=== PATIENT | male | born 1945 | race Caucasian/White ===

== ENCOUNTER 2018-11-11 10:19 | Inpatient (IN) | payer OTHER ==
[~2018-11-11] VITALS: Ht 188 cm; Wt 110.7 kg
[2018-11-11 10:23] VITALS: BP_SYST 118
[2018-11-11 11:20] LABS: BASOPHILS # (AUTO) 0.1 K/uL (0.0-0.2); BASOPHILS % (AUTO) 0.6 % (0.0-2.0); EOSINOPHILS # (AUTO) 0.1 K/uL (0.0-0.4); EOSINOPHILS % (AUTO) 0.4 % (0.0-4.0); HEMATOCRIT 41.7 % (36-54); HEMOGLOBIN 14.1 g/dL (14.0-18.0); LYMPHOCYTES # (AUTO) 1.5 K/uL (1.0-5.5); LYMPHOCYTES % (AUTO) 9.8 % (20.5-51.5); MEAN CORPUSCULAR HEMOGLOBIN 32 pg (27-31); MEAN CORPUSCULAR HGB CONC 34 % (32-36); MEAN CORPUSCULAR VOLUME 95 fL (79.0-98.0); MONOCYTES % (AUTO) 19.3 % (1.7-9.3); NEUTROPHILS # (AUTO) 10.7 K/uL (1.8-7.7); PLATELET COUNT (AUTO) 290 K/uL (130-430); RED BLOOD CELL COUNT(AUTO) 4.41 MIL/uL (4.2-6.2); RED CELL DISTRIBUTION WIDTH 13.3 % (9.0-15.0); WHITE BLOOD COUNT (AUTO) 15.4 K/uL (4.8-10.8)
[2018-11-11 11:38] LABS: ANION GAP 13 (5-15); CALCIUM 8.5 mg/dL (8.4-11.0); CHLORIDE 98 mmol/L (98-107); CREATININE 1.06 mg/dL (0.55-1.30); GLUCOSE 117 mg/dL (70-99); POTASSIUM 3.4 mmol/L (3.5-5.1); SODIUM SERUM 133 mmol/L (136-145); UREA NITROGEN, BLOOD 16 mg/dL (8-21)
[2018-11-11 11:44] LABS: INR 1.2 (0.80-1.20); PROTHROMBIN TIME 12.5 SECS (9.5-12.5)
[2018-11-11 11:45] LABS: ALANINE AMINOTRANSFERASE 21 U/L (12-78); ALBUMIN 2.2 g/dL (3.4-4.8); ASPARTATE AMINOTRANSFERASE 26 U/L (10-37); LIPASE 97 U/L (73-393); TOTAL BILIRUBIN 1.8 mg/dL (0.0-1.0)
[2018-11-11 11:52] LABS: NEUTROPHILS % (AUTO) 69.9 % (40.0-70.0)
[2018-11-11] MEDS ORDERED: CEFAZOLIN 2 GM IVPB PREMIX 50 ML IV ONE (13:00)
[2018-11-11] MEDS ORDERED: ASA400 PO (13:08)
[2018-11-11] MEDS ORDERED: IBUP-1969 PO (13:08)
[2018-11-11] MEDS ORDERED: FURO-149 PO (13:08)
[2018-11-11] MEDS ORDERED: VERA120C2 PO (13:08)
[2018-11-11] MEDS ORDERED: INSULIN REGULAR, HUMAN 100 UNITS/ML, 10 ML VIAL (novoLIN R) SUBCUT PRN (13:15)
[2018-11-11] MEDS ORDERED: IPRATROPIUM/ALBUTEROL SULFATE 3 ML AMPUL.NEB (DUONEB) INH PRN (13:15)
[2018-11-11] MEDS ORDERED: ONDANSETRON HCL 4 MG/2 ML VIAL IVP PRN (13:15)
[2018-11-11] MEDS ORDERED: ACETAMINOPHEN 325 MG TABLET PO PRN (13:15)
[2018-11-11] MEDS ORDERED: FUROSEMIDE 20 MG TABLET PO SCH (13:15)
[2018-11-11 13:29] VITALS: BP_SYST 144
[2018-11-11] MEDS: LEVOFLOXACIN 500 MG/D5W 100 ML IV SCH (14:43)
[2018-11-11] MEDS: NORMAL SALINE 5 ML DISP.SYRIN IVF SCH ×2 (14:43→21:17)
[2018-11-11 16:02] VITALS: BP_SYST 145; BP_SYST 148
[2018-11-11 16:50] LABS: BILIRUBIN,URINE 1+ (NEGATIVE); BLOOD, URINE 2+ (NEGATIVE); CLARITY/URINE SL HAZY (CLEAR); COLOR,URINE AMBER (YELLOW); GLUCOSE,URINE NEGATIVE (NEGATIVE); KETONES,URINE TRACE (NEGATIVE); LEUKOCYTE ESTERASE ,URINE NEGATIVE (NEGATIVE); NITRITE, URINE NEGATIVE (NEGATIVE); PH,URINE 6.5 (5.0-8.0); PROTEIN URINE NEGATIVE (NEGATIVE); UROBILINOGEN,URINE 0.2 (0.2-1.0)
[2018-11-11 17:49] LABS: BACTERIA,URINE FEW /HPF (None Seen); FINE GRANULAR CASTS,URINE 0-10 /LPF (None Seen); MUCUS,URINE None Seen /LPF (None Seen)
[2018-11-11] MEDS ORDERED: MORPHINE 2 MG/ML INJ. SYRINGE ONE (18:16)
[2018-11-11] MEDS ORDERED: RIVAROXABAN 15 MG TABLET PO SCH ×2 (18:30→19:00)
[2018-11-11 20:00] VITALS: BP_SYST 141
[2018-11-11] MEDS: CEFEPIME 1 GM in D5W 50 ML IV SCH (20:09)
[2018-11-11] MEDS: MESALAMINE 400 MG CAPSULE.DR PO SCH (20:10)
[2018-11-11] MEDS: VERAPAMIL HCL 120 MG TABLET.SA PO SCH (20:10)
[2018-11-11] MEDS ORDERED: RIVAROXABAN 10 MG TABLET PO SCH (21:00)
[2018-11-12] MEDS: MORPHINE 4 MG/ML INJ. SYRINGE IVP PRN ×4 (00:52→22:22)
[2018-11-12 02:40] VITALS: BP_SYST 131
[2018-11-12] MEDS: NORMAL SALINE 5 ML DISP.SYRIN IVF SCH ×3 (05:01→20:54)
[2018-11-12 08:24] VITALS: BP_SYST 140
[2018-11-12] MEDS ORDERED: MORPHINE 4 MG/ML INJ. SYRINGE IVP ONE (08:30)
[2018-11-12] MEDS: FUROSEMIDE 40 MG/4 ML VIAL IVP SCH (08:53)
[2018-11-12] MEDS: VERAPAMIL HCL 120 MG TABLET.SA PO SCH ×2 (08:56→20:39)
[2018-11-12] MEDS: MESALAMINE 400 MG CAPSULE.DR PO SCH ×3 (08:58→20:39)
[2018-11-12] MEDS: RIVAROXABAN 15 MG TABLET PO SCH ×2 (08:58→18:01)
[2018-11-12] MEDS: CEFEPIME 1 GM in D5W 50 ML IV SCH ×2 (08:59→20:14)
[2018-11-12] MEDS ORDERED: PANTOPRAZOLE SODIUM 40 MG/VIAL (PROTONIX) IVP SCH (09:00)
[2018-11-12] MEDS ORDERED: PANTOPRAZOLE SODIUM 40 MG/VIAL (PROTONIX) IVP ONE (09:00)
[2018-11-12] MEDS ORDERED: COMMUNICATION ORDER XX ONE (09:45)
[2018-11-12] MEDS ORDERED: NORFLURANE/HFC 245FA 103.5 ML SPRAY TP ONE ×2 (09:45→09:54)
[2018-11-12] MEDS: LEVOFLOXACIN 500 MG/D5W 100 ML IV SCH (10:59)
[2018-11-12 12:30] VITALS: BP_SYST 132
[2018-11-12 16:30] VITALS: BP_SYST 112
[2018-11-12] MEDS ORDERED: VANCOMYCIN HCL 1,500 MG in NS 250 ML IV ONE (19:00)
[2018-11-12 19:19] LABS: BODY FLUID SOURCE/ TYPE SYNOVIAL; SOURCE/TYPE ,BODY FLUID SYNOVIAL
[2018-11-12 19:21] LABS: BODY FLUID COLOR YELLOW (LT YELLOW); BODY FLUID TOTAL VOLUME 157.5 mL; RBC, BODY FLUID 3578 /uL; WBC, BODY FLUID 61844 /uL
[2018-11-12 20:00] VITALS: BP_SYST 124
[2018-11-12 20:10] LABS: APPEARANCE,SPUN,BODY FLUID CLEAR (CLEAR); EOSINOPHIL, BODY FLUID 0 %; LYMPHOCYTES, BODY FLUID 14 %; MONOCYTES,BODY FLUID 5 %; NEUTROPHIL, BODY FLUID 81 %
[2018-11-12] MEDS ORDERED: VANCOMYCIN HCL 1000 MG/VIAL IV ONE (20:10)
[2018-11-12] MEDS ORDERED: VANCOMYCIN HCL 500 MG/VIAL IV ONE (20:10)
[2018-11-12] MEDS ORDERED: COLCHICINE 0.6 MG TABLET PO SCH (22:00)
[2018-11-12 23:21] LABS: BODY FLUID GLUCOSE 3 mg/dL; BODY FLUID TOTAL PROTEIN 5.3 g/dL
[2018-11-13] VITALS (10 sets, daily range): BP systolic 107–119
[2018-11-13] MEDS: MORPHINE 4 MG/ML INJ. SYRINGE IVP PRN ×4 (02:56→21:31)
[2018-11-13] MEDS: NORMAL SALINE 5 ML DISP.SYRIN IVF SCH ×3 (05:12→21:39)
[2018-11-13 06:44] LABS: BASOPHILS % (AUTO) 0.1 % (0.0-2.0); EOSINOPHILS % (AUTO) 0.2 % (0.0-4.0); HEMATOCRIT 39.1 % (36-54); HEMOGLOBIN 13.4 g/dL (14.0-18.0); LYMPHOCYTES # (AUTO) 1.9 K/uL (1.0-5.5); LYMPHOCYTES % (AUTO) 10.4 % (20.5-51.5); MEAN CORPUSCULAR HEMOGLOBIN 32 pg (27-31); MEAN CORPUSCULAR HGB CONC 34 % (32-36); MEAN CORPUSCULAR VOLUME 93 fL (79.0-98.0); MONOCYTES # (AUTO) 3.2 K/uL (0.0-1.0); MONOCYTES % (AUTO) 17.8 % (1.7-9.3); NEUTROPHILS # (AUTO) 12.9 K/uL (1.8-7.7); PLATELET COUNT (AUTO) 323 K/uL (130-430); RED BLOOD CELL COUNT(AUTO) 4.23 MIL/uL (4.2-6.2); RED CELL DISTRIBUTION WIDTH 13.2 % (9.0-15.0)
[2018-11-13 06:54] LABS: ALANINE AMINOTRANSFERASE 15 U/L (12-78); ALBUMIN 1.7 g/dL (3.4-4.8); ANION GAP 12 (5-15); ASPARTATE AMINOTRANSFERASE 23 U/L (10-37); CHLORIDE 95 mmol/L (98-107); CREATININE 0.89 mg/dL (0.55-1.30); GLUCOSE 101 mg/dL (70-99); POTASSIUM 3.6 mmol/L (3.5-5.1); SODIUM SERUM 130 mmol/L (136-145); TOTAL BILIRUBIN 1.9 mg/dL (0.0-1.0); UREA NITROGEN, BLOOD 15 mg/dL (8-21)
[2018-11-13 09:44] LABS: NEUTROPHILS % (AUTO) 71.5 % (40.0-70.0)
[2018-11-13] MEDS: CEFEPIME 1 GM in D5W 50 ML IV SCH ×2 (09:56→21:31)
[2018-11-13] MEDS: VANCOMYCIN HCL 1,500 MG in NS 250 ML IV SCH ×2 (09:57→21:30)
[2018-11-13] MEDS: VERAPAMIL HCL 120 MG TABLET.SA PO SCH ×2 (09:58→21:29)
[2018-11-13] MEDS: COLCHICINE 0.6 MG TABLET PO SCH (09:58)
[2018-11-13] MEDS: LEVOFLOXACIN 500 MG/D5W 100 ML IV SCH (09:59)
[2018-11-13] MEDS: MESALAMINE 400 MG CAPSULE.DR PO SCH ×3 (09:59→21:28)
[2018-11-13] MEDS: FUROSEMIDE 40 MG/4 ML VIAL IVP SCH (10:00)
[2018-11-13] MEDS: PANTOPRAZOLE SODIUM 40 MG/VIAL (PROTONIX) IVP SCH (10:36)
[2018-11-13] MEDS ORDERED: PANTOPRAZOLE SODIUM 40 MG/VIAL (PROTONIX) IVP ONE (10:45)
[2018-11-13] MEDS ORDERED: fentaNYL CITRATE/PF 100 MCG/2 ML AMP IVP PRN (18:15)
[2018-11-13] MEDS ORDERED: ONDANSETRON HCL 4 MG/2 ML VIAL IVP PRN (18:15)
[2018-11-13] MEDS: fentaNYL CITRATE/PF 100 MCG/2 ML AMP IVP PRN ×2 (20:14→20:39)
[2018-11-13] MEDS ORDERED: MILK OF MAGNESIA 30 ML UDC PO PRN (20:15)
[2018-11-13] MEDS ORDERED: fentaNYL CITRATE/PF 100 MCG/2 ML AMP ONE (20:20)
[2018-11-13] MEDS: SENNOSIDES 8.6 MG TABLET PO SCH (21:28)
[2018-11-14] VITALS (7 sets, daily range): BP systolic 105–128
[2018-11-14] MEDS: NORMAL SALINE 5 ML DISP.SYRIN IVF SCH ×3 (05:46→23:07)
[2018-11-14 06:56] LABS: ANION GAP 11 (5-15); CALCIUM 7.9 mg/dL (8.4-11.0); CHLORIDE 95 mmol/L (98-107); CREATININE 0.98 mg/dL (0.55-1.30); GLUCOSE 100 mg/dL (70-99); POTASSIUM 3.7 mmol/L (3.5-5.1); SODIUM SERUM 130 mmol/L (136-145); UREA NITROGEN, BLOOD 24 mg/dL (8-21)
[2018-11-14 07:24] LABS: BASOPHILS % (AUTO) 0.1 % (0.0-2.0); EOSINOPHILS # (AUTO) 0.1 K/uL (0.0-0.4); EOSINOPHILS % (AUTO) 0.3 % (0.0-4.0); HEMATOCRIT 36.4 % (36-54); HEMOGLOBIN 12.7 g/dL (14.0-18.0); LYMPHOCYTES # (AUTO) 1.5 K/uL (1.0-5.5); LYMPHOCYTES % (AUTO) 8.7 % (20.5-51.5); MEAN CORPUSCULAR HEMOGLOBIN 32 pg (27-31); MEAN CORPUSCULAR HGB CONC 35 % (32-36); MEAN CORPUSCULAR VOLUME 93 fL (79.0-98.0); MONOCYTES # (AUTO) 2.4 K/uL (0.0-1.0); MONOCYTES % (AUTO) 14.1 % (1.7-9.3); NEUTROPHILS # (AUTO) 13.1 K/uL (1.8-7.7); NEUTROPHILS % (AUTO) 76.8 % (40.0-70.0); PLATELET COUNT (AUTO) 358 K/uL (130-430); RED BLOOD CELL COUNT(AUTO) 3.93 MIL/uL (4.2-6.2); RED CELL DISTRIBUTION WIDTH 13.6 % (9.0-15.0)
[2018-11-14 07:29] LABS: WHITE BLOOD COUNT (AUTO) 17.1 K/uL (4.8-10.8)
[2018-11-14] MEDS: MESALAMINE 400 MG CAPSULE.DR PO SCH ×3 (08:28→23:06)
[2018-11-14] MEDS: COLCHICINE 0.6 MG TABLET PO SCH (08:28)
[2018-11-14] MEDS: ASCORBIC ACID 500 MG TABLET PO SCH ×2 (08:29→23:05)
[2018-11-14] MEDS: MULTIVITAMINS TAB 1 TABLET PO SCH (08:29)
[2018-11-14] MEDS: CEFEPIME 1 GM in D5W 50 ML IV SCH (08:29)
[2018-11-14] MEDS: FUROSEMIDE 40 MG/4 ML VIAL IVP SCH (08:30)
[2018-11-14] MEDS: VANCOMYCIN HCL 1,500 MG in NS 250 ML IV SCH (08:31)
[2018-11-14] MEDS: PANTOPRAZOLE SODIUM 40 MG/VIAL (PROTONIX) IVP SCH (08:31)
[2018-11-14] MEDS: RIVAROXABAN 15 MG TABLET PO SCH ×2 (08:35→17:17)
[2018-11-14] MEDS: VERAPAMIL HCL 120 MG TABLET.SA PO SCH ×2 (08:39→23:06)
[2018-11-14] MEDS: LEVOFLOXACIN 500 MG/D5W 100 ML IV SCH (09:25)
[2018-11-14] MEDS: MORPHINE 4 MG/ML INJ. SYRINGE IVP PRN ×2 (12:23→17:12)
[2018-11-14 14:34] LABS: BODY FLUID CRYSTALS NO CRYSTALS SEEN (None Seen)
[2018-11-14] MEDS: NAFCILLIN SODIUM 2 GM in NS 100 ML IV SCH ×2 (17:13→23:07)
[2018-11-14] MEDS ORDERED: SEVOFLURANE 15 MIN GAS INH ONE (17:30)
[2018-11-14] MEDS ORDERED: WATER FOR IRRIGATION,STERILE 1,000 ML IRRIG.SOLN IR ONE (17:30)
[2018-11-14] MEDS ORDERED: KETOROLAC TROMETHAMINE 30 MG VIAL IVP ONE (17:30)
[2018-11-14] MEDS ORDERED: LR 1,000 ML IV.SOLN IV ONE (17:30)
[2018-11-14] MEDS ORDERED: fentaNYL CITRATE/PF 100 MCG/2 ML AMP IVP ONE (17:30)
[2018-11-14] MEDS ORDERED: MIDAZOLAM HCL 5 MG/5 ML VIAL IVP ONE (17:30)
[2018-11-14] MEDS ORDERED: PROPOFOL 200MG/ 20ML VIAL (DIPRIVAN) IV ONE (17:30)
[2018-11-14] MEDS: SENNOSIDES 8.6 MG TABLET PO SCH (21:00)
[2018-11-15] MEDS: MORPHINE 4 MG/ML INJ. SYRINGE IVP PRN ×4 (04:38→20:10)
[2018-11-15] MEDS: NAFCILLIN SODIUM 2 GM in NS 100 ML IV SCH ×3 (06:34→17:34)
[2018-11-15] MEDS: NORMAL SALINE 5 ML DISP.SYRIN IVF SCH ×3 (06:34→22:27)
[2018-11-15 08:10] VITALS: BP_SYST 109
[2018-11-15] MEDS: PANTOPRAZOLE SODIUM 40 MG/VIAL (PROTONIX) IVP SCH (08:54)
[2018-11-15] MEDS: MESALAMINE 400 MG CAPSULE.DR PO SCH ×3 (08:55→20:08)
[2018-11-15] MEDS: MULTIVITAMINS TAB 1 TABLET PO SCH (08:55)
[2018-11-15] MEDS: ASCORBIC ACID 500 MG TABLET PO SCH ×2 (08:55→20:08)
[2018-11-15] MEDS: VERAPAMIL HCL 120 MG TABLET.SA PO SCH ×2 (08:56→20:08)
[2018-11-15] MEDS: FUROSEMIDE 40 MG/4 ML VIAL IVP SCH (08:57)
[2018-11-15] MEDS: RIVAROXABAN 15 MG TABLET PO SCH ×2 (08:58→17:34)
[2018-11-15 10:54] VITALS: BP_SYST 114
[2018-11-15 16:20] VITALS: BP_SYST 130
[2018-11-15] MEDS: HYDROcodone/ACETAMIN 10-325 MG TAB PO PRN (17:40)
[2018-11-15 19:25] VITALS: BP_SYST 109
[2018-11-15] MEDS: SENNOSIDES 8.6 MG TABLET PO SCH (20:08)
[2018-11-16] MEDS: NAFCILLIN SODIUM 2 GM in NS 100 ML IV SCH ×4 (00:27→18:26)
[2018-11-16 01:41] VITALS: BP_SYST 119
[2018-11-16] MEDS: NORMAL SALINE 5 ML DISP.SYRIN IVF SCH ×2 (06:49→14:11)
[2018-11-16] MEDS: MORPHINE 4 MG/ML INJ. SYRINGE IVP PRN ×2 (06:54→10:53)
[2018-11-16 06:56] LABS: BASOPHILS % (AUTO) 0.2 % (0.0-2.0); EOSINOPHILS # (AUTO) 0.1 K/uL (0.0-0.4); EOSINOPHILS % (AUTO) 0.5 % (0.0-4.0); HEMATOCRIT 32.9 % (36-54); HEMOGLOBIN 11.1 g/dL (14.0-18.0); LYMPHOCYTES # (AUTO) 1.8 K/uL (1.0-5.5); LYMPHOCYTES % (AUTO) 10.1 % (20.5-51.5); MEAN CORPUSCULAR HEMOGLOBIN 31 pg (27-31); MEAN CORPUSCULAR HGB CONC 34 % (32-36); MEAN CORPUSCULAR VOLUME 93 fL (79.0-98.0); MONOCYTES # (AUTO) 2.7 K/uL (0.0-1.0); NEUTROPHILS # (AUTO) 13.1 K/uL (1.8-7.7); NEUTROPHILS % (AUTO) 74.2 % (40.0-70.0); PLATELET COUNT (AUTO) 444 K/uL (130-430); RED BLOOD CELL COUNT(AUTO) 3.55 MIL/uL (4.2-6.2); RED CELL DISTRIBUTION WIDTH 13.3 % (9.0-15.0); WHITE BLOOD COUNT (AUTO) 17.7 K/uL (4.8-10.8)
[2018-11-16 09:00] VITALS: BP_SYST 117
[2018-11-16] MEDS: MESALAMINE 400 MG CAPSULE.DR PO SCH ×2 (09:11→14:09)
[2018-11-16] MEDS: PANTOPRAZOLE SODIUM 40 MG/VIAL (PROTONIX) IVP SCH (09:11)
[2018-11-16] MEDS: VERAPAMIL HCL 120 MG TABLET.SA PO SCH (09:12)
[2018-11-16] MEDS: ASCORBIC ACID 500 MG TABLET PO SCH (09:12)
[2018-11-16] MEDS: MULTIVITAMINS TAB 1 TABLET PO SCH (09:12)
[2018-11-16] MEDS: FUROSEMIDE 40 MG/4 ML VIAL IVP SCH (09:13)
[2018-11-16] MEDS: RIVAROXABAN 15 MG TABLET PO SCH ×2 (09:14→18:00)
[2018-11-16 12:52] VITALS: BP_SYST 112
[2018-11-16] MEDS ORDERED: NS 500 ML IV ONE (14:00)
[2018-11-16 17:26] VITALS: BP_SYST 117
[2018-11-16] MEDS: HYDROcodone/ACETAMIN 10-325 MG TAB PO PRN (18:27)
[2018-11-16 18:28] VITALS: BP_SYST 101
== END 2018-11-16 19:30 | DRG 854 ==
LOC: SED 10:19 → STU 13:03 → SMU 11-13 23:32
PROVIDERS: ADMIT Internal Medicine; ATTEND Internal Medicine
PROC: 0S9C3ZZ Drainage of Right Knee Joint, Percutaneous Approach (ICD-10-PCS; principal; 2018-11-12)
PROC: 0Y3 Anatomical Regions, Lower Extremities, Control (ICD-10-PCS; 2018-11-13)
PROC: 0S9C4ZZ Drainage of Right Knee Joint, Percutaneous Endoscopic Approach (ICD-10-PCS; 2018-11-13)
DX: A41.01 Sepsis due to Methicillin susceptible Staphylococcus aureus (principal); L03.115 Cellulitis of right lower limb; J98.11 Atelectasis; I82.431 Acute embolism and thrombosis of right popliteal vein; L97.909 Non-pressure chronic ulcer of unspecified part of unspecified lower leg with unspecified severity; M00.9 Pyogenic arthritis, unspecified; M94.261 Chondromalacia, right knee; I10 Essential (primary) hypertension; I87.8 Other specified disorders of veins; I73.9 Peripheral vascular disease, unspecified; I87.2 Venous insufficiency (chronic) (peripheral); M25.461 Effusion, right knee; Z79.01 Long term (current) use of anticoagulants; Z86.718 Personal history of other venous thrombosis and embolism; Z89.421 Acquired absence of other right toe(s); Z79.899 Other long term (current) drug therapy; Z87.81 Personal history of (healed) traumatic fracture; Z89.412 Acquired absence of left great toe
CPT/HCPCS: 36415; 70450-TC; 71045; 73560-TC; 80048; 80053; 80202-TC; 81000-TC; 82550-TC; 82947-TC; 83605; 83690-TC; 83880; 84157-TC; 85025; 85610-TC; 85651-TC; 85730-TC; 87040-TC; 87070; 87070-TC; 87075-TC; 87081; 87101; 87186-TC; 89051-TC; 89060-TC; 93005; 93306; 93971; 94640; 94760; 96365; 97163; 97530-GP; 99291; 99292; C9113; G0378; J0690; J0692; J1885; J1940; J1956; J2250; J2270; J2704; J3010; J3370; J3490; J7040; J7050; J7060; J7120; J7620